=== PATIENT | male | born 1945 | race Caucasian/White ===

== ENCOUNTER → 2017-05-09 | Outpatient (CLI) | payer MEDICARE | END | disposition home or self-care (01) | LOC: CFH 08:41 | DX: I35.0 Nonrheumatic aortic (valve) stenosis (principal) | CPT/HCPCS: 93978 ==

== ENCOUNTER → 2018-11-23 | Outpatient (CLI) | payer MEDICARE | END | disposition home or self-care (01) | LOC: RAD 13:17 | PROVIDERS: ATTEND Nurse Practitioner | DX: M25.572 Pain in left ankle and joints of left foot (principal) ==

== ENCOUNTER → 2020-03-03 | Outpatient (CLI) | payer MEDICARE | END | disposition home or self-care (01) | LOC: RAD 15:53 | PROVIDERS: ATTEND Internal Medicine Nephrology | DX: N28.1 Cyst of kidney, acquired (principal); N20.0 Calculus of kidney; N18.30 Chronic kidney disease, stage 3 unspecified | CPT/HCPCS: 76770 ==